=== PATIENT | male | born 1955 | race Hispanic/Latino ===

== ENCOUNTER 2025-01-31 16:32 | Emergency (ER) | payer OTHER ==
[~2025-01-31] VITALS: Ht 175.3 cm; Wt 73.9 kg
[2025-01-31 17:39] LABS: RED CELL DISTRIBUTION WIDTH 12.8 % (11.7-14.4)
[2025-01-31 17:40] LABS: BASOPHILS % 0.6 % (0.0-1.0); EOSINOPHILS % 2.7 % (0.0-6.0); LYMPHOCYTES % 23.5 % (18.0-39.1); MONOCYTES % 10.8 % (4.4-11.3); NEUTROPHILS % 62.2 % (38.7-80.0)
[2025-01-31 17:57] LABS: EST GLOMERULAR FILTRATION RATE 10 ML/MIN (>=60)
[2025-01-31] MEDS: Morphine 4mg INJECTION 4 MG/ML INJ IV STA (18:15)
[2025-01-31] MEDS ORDERED: CYCLOBENZAPRINE5 MG PO (18:39)
[2025-01-31 19:51] VITALS: PULSE 56; RESP 18; TEMP 98.2; O2SAT 100
== END 2025-01-31 19:55 | disposition home or self-care (01) ==
LOC: ER 17:10
DX: R07.9 Chest pain, unspecified (principal); M54.10 Radiculopathy, site unspecified; I12.0 Hypertensive chronic kidney disease with stage 5 chronic kidney disease or end stage renal disease; E11.22 Type 2 diabetes mellitus with diabetic chronic kidney disease; N18.6 End stage renal disease; Z99.2 Dependence on renal dialysis
CPT/HCPCS: 36415; 71046; 80048; 82550; 84484; 85025; 93005; 99284; J2270